=== PATIENT | female | born 1975 | race Caucasian/White ===

== ENCOUNTER 2019-06-11 21:04 | Emergency (ER) | payer OTHER ==
--- NOTE | 2019-06-11 21:38 | ER Document Report ---
ED Medical Screen (RME) - General Chief Complaint: Facial Droop Stated Complaint: LEFT SIDE FACIAL PARALYSIS Time Seen by Provider: 06/11/19 21:33 Notes: Patient is a 43-year-old female who presents to the emergency department with a chief complaint of left hand numbness. Patient reports around 6 PM tonight she was cleaning the house when she had a glass in her left hand. Patient reports she had acute onset of left-handed weakness making her drop the cup. Patient reports within 30 seconds she developed left facial numbness. Patient reports this also included her left side of her tongue. Patient reports she did face time her significant other who noticed a facial droop. Patient denies history of stroke. Patient reports she did recently travel from [place] which is about a 6- hour car ride 2 days ago. Patient is on tamoxifen. Patient reports she finished radiation for breast cancer back in February. - Related Data Allergies/Adverse Reactions: No Known Allergies Allergy (Verified 06/11/19 21:27) Physical Exam - Vital signs Vitals: Temp Pulse Resp BP Pulse Ox 98.2 F 94 16 151/93 H 100 06/11/19 21:23 06/11/19 21:23 06/11/19 21:23 06/11/19 21:23 06/11/19 21:23 Interpretation: Hypertensive Course - Re-evaluation Re-evalutation: 06/11/19 21:37 Patient does not have a facial droop at this time. Patient is alert and oriented x3. Patient speech is clear and appropriate. Patient's bilateral gri ps strong. I do not notice a significant difference in the left hand weakness. Patient reports she feels like her left hand is still not quite right she feels weak herself. I did speak with Dr. Bolanos who recommends obtaining a CT of the head and lab work. I have greeted and performed a rapid initial assessment of this patient. A comprehensive ED assessment and evaluation of the patient, analysis of test results and completion of the medical decision making process will be conducted by additional ED providers. - Vital Signs Vital signs: Temp Pulse Resp BP Pulse Ox 98.2 F 94 16 151/93 H 100 06/11/19 21:23 06/11/19 21:23 06/11/19 21:23 06/11/19 21:23 06/11/19 21:23
--- NOTE | 2019-06-11 22:07 | RADIOLOGY REPORT (SQ) ---
EXAM DESCRIPTION: CT head without contrast CLINICAL HISTORY: 43 years Female, left hand weakness COMPARISON: None. TECHNIQUE: Axial images of the head were performed without the use of intravenous contrast, with sagittal and coronal reformatted images. This exam was performed according to our departmental dose-optimization program which includes use of Automated Exposure Control, adjustment of the mA and/or kV according to patient size and/or use of iterative reconstruction technique. FINDINGS: No evidence of acute hemorrhage or infarct. No evidence of mass or hydrocephalus. Merino/white matter differentiation is preserved. The visualized paranasal sinuses are clear. IMPRESSION: Normal head CT.
--- NOTE | 2019-06-11 22:13 | RADIOLOGY REPORT (SQ) ---
Chest one view on 06/11/2019 at 9:59 PM CLINICAL INDICATION: Left hand weakness COMPARISON: None FINDINGS: The lungs are clear. Cardiac, hilar and mediastinal contours are within normal limits. Pulmonary vascularity is within normal limits. No bony abnormality is noted. IMPRESSION: No active disease.
[2019-06-11 22:51] LABS: ABSOLUTE EOSINOPHILS # (AUTO) 0.1 10^3/uL (0.0-0.6); ABSOLUTE LYMPHOCYTES (AUTO) 1.3 10^3/uL (0.5-4.7); ABSOLUTE MONOCYTES (AUTO) 0.3 10^3/uL (0.1-1.4); ABSOLUTE NEUT (AUTO) 3.8 10^3/uL (1.7-8.2); BASOPHILS % (AUTO) 0.8 % (0-2); EOSINOPHILS % (AUTO) 1.1 % (0-6); HEMATOCRIT 37.9 % (36.0-47.0); HEMOGLOBIN 13.3 g/dL (12.0-15.5); LYMPHOCYTES % (AUTO) 23.4 % (13-45); MEAN CORPUSCULAR HEMOGLOBIN 35.8 pg (27.0-33.4); MEAN CORPUSCULAR VOLUME 102 fl (80-97); MONOCYTES % (AUTO) 4.8 % (3-13); PLATELET COUNT 295 10^3/uL (150-450); RED BLOOD COUNT 3.71 10^6/uL (3.72-5.28); SEGMENTED NEUTROPHILS % (AUTO) 69.9 % (42-78); TOTAL CELLS COUNTED % (AUTO) 100 %; WHITE BLOOD COUNT 5.4 10^3/uL (4.0-10.5)
--- NOTE | 2019-06-11 22:59 | ER Document Report ---
ED General - General Chief Complaint: Facial Droop Stated Complaint: LEFT SIDE FACIAL PARALYSIS Time Seen by Provider: 06/11/19 21:33 Primary Care Provider: GILMER DOVER DO [Primary Care Provider] - Follow up as needed - HPI Patient complains to provider of: left arm weakness Onset: Just prior to arrival Onset/Duration: Sudden Quality of pain: No pain Severity: Moderate Pain Level: Denies Context: 43 year old right handed white female with PCP at [facility] is here after acute onset left sided arm weakness this evening at home. Dropped a cup at home when this started and no pain but arm was weak. Smoker with no htn, dm or hld. She has known diagnosed in 2019 breast cancer - left side - and is being treated with tamoxifen currently. She is back to baseline when I see her. Still a bit weak reportedly when she first arrived and the MSE evaluation was done. Exacerbated by: Denies Relieved by: Denies Similar symptoms previously: No Recently seen / treated by doctor: No - Related Data Allergies/Adverse Reactions: No Known Allergies Allergy (Verified 06/11/19 21:27) Past Medical History - General Information source: Patient - Social History Smoking Status: Current Some Day Smoker Family History: Reviewed & Not Pertinent Review of Systems - Review of Systems Constitutional: No symptoms reported EENT: No symptoms reported Cardiovascular: No symptoms reported Respiratory: No symptoms reported Gastrointestinal: No symptoms reported Genitourinary: No symptoms reported Female Genitourinary: No symptoms reported Musculoskeletal: No symptoms reported Skin: No symptoms reported Hematologic/Lymphatic: No symptoms reported Neurological/Psychological: No symptoms reported Physical Exam - Vital signs Vitals: Temp Pulse Resp BP Pulse Ox 98.2 F 94 16 151/93 H 100 06/11/19 21:23 06/11/19 21:23 06/11/19 21:23 06/11/19 21:23 06/11/19 21:23 Interpretation: Normal - General General appearance: Appears well, Alert - HEENT Head: Normocephalic, Atraumatic Eyes: Normal Pupils: PERRL - Respiratory Respiratory status: No respiratory distress Chest status: Nontender Breath sounds: Normal Chest palpation: Normal - Cardiovascular Rhythm: Regular Heart sounds: Normal auscultation Murmur: No - Abdominal Inspection: Normal Distension: No distension Bowel sounds: Normal Tenderness: Nontender Organomegaly: No organomegaly - Back Back: Normal, Nontender - Extremities General upper extremity: Normal inspection, Nontender, Normal color, Normal ROM, Normal temperature General lower extremity: Normal inspection, Nontender, Normal color, Normal ROM, Normal temperature, Normal weight bearing. No: Vito's sign - Neurological Neuro grossly intact: Yes Cognition: Normal Orientation: AAOx4 Sydney Coma Scale Eye Opening: Spontaneous Clancy Coma Scale Verbal: Oriented Clancy Coma Scale Motor: Obeys Commands Sydney Coma Scale Total: 15 Speech: Normal Motor strength normal: LUE, RUE, LLE, RLE Sensory: Normal - Psychological Associated symptoms: Normal affect, Normal mood - Skin Skin Temperature: Warm Skin Moisture: Dry Skin Color: Normal Course - Re-evaluation Re-evalutation: 06/12/19 00:55 MDM Pt is completely resolved with GCS 15 and NIHSS of 0. I discussed with the hospitalist and with her having strong social support, no identifible risks of cvd and normal workup here I feel it is reasonable for her to closely follow up with PCP. Must take Asa 325 daily and we discussed this and started tonight. She expressed understanding. TPA was considered but with total resolution of her symptoms I felt it was not needed/ necessary/ indicated. Counselled for 10 minutes regarding smoking cessation. - Vital Signs Vital signs: Temp Pulse Resp BP Pulse Ox 98.3 F 73 20 127/86 H 98 06/12/19 02:34 06/11/19 23:43 06/12/19 02:00 06/12/19 02:00 06/12/19 02:00 - Laboratory Result Diagrams: 06/11/19 22:30 06/11/19 22:30 Laboratory results interpreted by me: 06/11/19 22:30 RBC 3.71 L MCV 102 H MCH 35.8 H Critical Care Note - Critical Care Note Total time excluding time spent on procedures (mins): 30 Discharge - Discharge Clinical Impression: TIA (transient ischemic attack) Condition: Good Disposition: HOME, SELF-CARE Instructions: Transient Ischemic Attack ([facility]) Additional Instructions: Take a regular aspirin (325 mg) each day. Stop smoking as discussed. Please ca ll your primary doctor for follow up and call today. Return here for any problems or any concerns. Referrals: GILMER DOVER, [Primary Care Provider] - Follow up as needed
[2019-06-11 23:01] LABS: INTERNATIONAL RATION (INR) 0.98
[2019-06-11 23:09] LABS: ALBUMIN 4.4 g/dL (3.5-5.0); ALKALINE PHOSPHATASE 40 U/L (38-126); ANION GAP 12 (5-19); ASPARTATE AMINO TRANSFERASE 26 U/L (14-36); BILIRUBIN,DIRECT 0.3 mg/dL (0.0-0.4); BILIRUBIN,TOTAL 0.3 mg/dL (0.2-1.3); BLOOD UREA NITROGEN 12 mg/dL (7-20); CALCIUM 9.4 mg/dL (8.4-10.2); CARBON DIOXIDE 22 mmol/L (22-30); CHLORIDE 107 mmol/L (98-107); CREATINE KINASE 103 U/L (30-135); GLUCOSE 97 mg/dL (75-110); POTASSIUM 4.2 mmol/L (3.6-5.0); TOTAL PROTEIN 7.4 g/dL (6.3-8.2)
[2019-06-11] MEDS ORDERED: ASPIRIN 325 MG TABLET PO ONE (23:27)
[2019-06-11 23:33] LABS: TROPONIN I < 0.012 ng/mL
[2019-06-12 02:25] VITALS: BP 127/86
--- NOTE | 2019-06-12 09:15 | EKG REPORT ---
SEVERITY:- NORMAL ECG - SINUS RHYTHM : Confirmed by: Jeimy Zimmerman 12-Jun-2019 09:15:17
== END 2019-06-12 02:34 | disposition home or self-care (01) ==
LOC: ER 21:04
DX: G45.9 Transient cerebral ischemic attack, unspecified (principal); R53.1 Weakness; C50.912 Malignant neoplasm of unspecified site of left female breast; Z79.899 Other long term (current) drug therapy; F17.200 Nicotine dependence, unspecified, uncomplicated; Z71.6 Tobacco abuse counseling
CPT/HCPCS: 36415; 70450; 71045; 80053; 81025; 82550; 82553; 84484; 85025; 85610; 85730; 93005; 93010; 99284

== ENCOUNTER → 2019-07-15 | Outpatient (CLI) | payer OTHER ==
--- NOTE | 2019-07-16 10:10 | RADIOLOGY REPORT (SQ) ---
EXAM DESCRIPTION: PET CT SKULL/THIGH COMPLETED DATE/TIME: 07/15/2019 1:06 pm REASON FOR STUDY: (C50.919)MALIGNANT NEOPLASM OF UNSP SITE OF UNSPECIFIED FEMALE BREAST C50.919 MAL IGNANT NEOPLASM OF UNSP SITE OF UNSPECIFIED FEMAL COMPARISON: None. RADIONUCLIDE AND DOSE: 9.97 mCi F18 FDG The route of agent administration: Intravenous FASTING BLOOD SUGAR: 116 mg/dl CONTRAST TYPE AND DOSE: No CT contrast given. TECHNIQUE: Blood glucose level was verified. Above dose of FDG was injected intravenously. 2-D seg mented attenuation correction images were obtained from the base of the skull to the midthighs. Nonc ontrast CT images were obtained for attenuation correction and fusion with emission images. CT image s were performed without oral or intravenous contrast and are not sensitive for parenchymal lesions. A series of overlapping emission PET images were obtained. Images reviewed and manipulated at [facility] work station by the radiologist. Images stored on PACS. LIMITATIONS: None. FINDINGS: HEAD AND NECK: No areas of abnormal metabolic activity in the soft tissues of the head and neck. CHEST: The spiculated soft tissue around the surgical clips in the left axillary tail demonstrates m ild FDG uptake with a maximum SUV of 2.1. The asymmetric left-sided skin thickening also demonstrate s mild FDG uptake. No other areas of abnormal metabolic activity are identified in the chest. ABDOMEN AND PELVIS: The liver demonstrates heterogeneous non focal FDG uptake with an average SUV of 2.7. There is expected physiologic activity throughout the gastrointestinal and genitourinary tracts . No areas of abnormal metabolic activity are identified in the abdomen and pelvis. PROXIMAL LOWER EXTREMITIES: No areas of abnormal metabolic activity in the soft tissues of the lower extremities. BONES: No areas of abnormal metabolic activity in the imaged axial and appendicular skeleton. ADDITIONAL CT FINDINGS: Hepatic steatosis, colonic diverticulosis and bilateral breast implants. OTHER: No other findings. IMPRESSION: Posttreatment changes in the left breast as detailed above. There is no metabolic evide nce of recurrent or metastatic disease. TECHNICAL DOCUMENTATION: JOB ID: [id number] 2010 [employer]- All Rights Reserved Reading location - IP/workstation name: [email or web address]
== END ==
LOC: RAD 10:36
PROVIDERS: ATTEND Surgery
DX: C50.912 Malignant neoplasm of unspecified site of left female breast (principal); Z98.82 Breast implant status; K57.30 Diverticulosis of large intestine without perforation or abscess without bleeding
CPT/HCPCS: 78815; A9552